=== PATIENT | female | born 2000 | race African-American/Black ===

== ENCOUNTER 2021-07-18 18:48 | Emergency (ER) | payer BC, MEDICAID, SELFPAY ==
[2021-07-18 18:59] VITALS: BP 137/92; PULSE 95; RESP 18; TEMP 37; O2SAT 100
[2021-07-18 19:00] VITALS: BP 137/92; PULSE 95; RESP 18; TEMP 37; O2SAT 100
--- NOTE | 2021-07-18 19:04 | ED.GENADULT ---
HPI - General Adult General Chief complaint: Asthma Stated complaint: ASTHMA Time Seen by Provider: 07/18/21 19:04 Source: patient Mode of arrival: ambulatory Limitations: no limitations History of Present Illness HPI narrative: 20 y/o female presented for c/o 'asthma attack' stating she has had difficulty taking in deep breaths for 2 days after cleaning bathroom with bleach. Endorses mild discomfort with deep breaths and occasional wheezing. Endorses symptoms are worse with exertion. PCP prescribed rescue inhaler yesterday, states she has been taking it every 4 hours without significant relief. Denies recent illness, cp, palpitations, n/v/d/f/c. Not vaccinated for covid. Denies sick contacts. No distress. Related Data Home Medications Medication Instructions Recorded Confirmed albuterol sulfate 90 mcg INHALATION PRN PRN 07/18/21 07/18/21 Allergies Allergy/AdvReac Type Severity Reaction Status Date / Time Penicillins Allergy Mild Unknown Verified 07/18/21 18:58 Review of Systems Review of Systems: CONSTITUTIONAL: Denies body aches, fever, chills, or sweats. EYES: Denies visual changes, redness, or discharge. ENT: Denies rhinorrhea, congestion, sore throat, or otalgia. CARDIOVASCULAR: Denies chest pain, palpitations, or edema. RESPIRATORY: reports cough and dyspnea. GASTROINTESTINAL: Denies abdominal pain, nausea, vomiting, or diarrhea. GENITOURINARY: Denies dysuria or hematuria. SKIN: Denies rash, itching, or wounds. MUSCULOSKELETAL: Denies back pain, joint pain, or myalgia. NEUROLOGIC: Denies headache, numbness, tingling, or weakness. PSYCH: Denies depression or anxiety. All systems reviewed & are unremarkable except as noted in HPI and below [facility] Comments At time of signature, I have reviewed and agree with nursing past medical, surgical, social and family history unless otherwise noted. Please see nursing chart for further information. There is no relevant family history pertinent to the presenting complaint Exam Narrative: GENERAL: Well-appearing in no acute distress. HEAD: Normocephalic, atraumatic. EYES: No redness or drainage. Conjunctivae normal. ENT: Mucous membranes pink and moist. No rhinorrhea. Throat normal. Uvula midline. NECK: Normal AROM. Supple. No lymphadenopathy. CHEST: No respiratory distress. Clear and diminished to auscultation. speaks in full sentences. HEART: Regular rate and rhythm. No murmur appreciated. Normal peripheral pulses. ABDOMEN: Soft, nontender, nondistended, normal active bowel sounds. MUSCULOSKELETAL: No bony tenderness. EXTREMITIES: Normal range of motion. No edema. SKIN: Warm, dry, no rash. Capillary refill normal. Normal skin turgor. NEURO: No focal deficits. Alert and oriented x3. Gait steady. PSYCH: Normal affect. No signs of depression or anxiety. Course Course Emergency Course: Patient is aware of diagnosis, understands and agrees to treatment plan. Anticipatory guidance given. Patient agrees to follow-up as directed and is aware of reasons to seek care at the emergency department. Portions of this record may have been created with voice recognition software Level of Care: Express Care Visit Vital Signs Vital signs: Vital Signs Temperature 98.6 F 07/18/21 18:59 Pulse Rate 95 07/18/21 18:59 Respiratory Rate 18 07/18/21 18:59 Blood Pressure 137/92 H 07/18/21 18:59 Pulse Oximetry 100 07/18/21 18:59 Temperature 98.6 F 07/18/21 19:00 Pulse Rate 95 07/18/21 19:00 Respiratory Rate 18 07/18/21 19:00 Blood Pressure 137/92 H 07/18/21 19:00 Pulse Oximetry 100 07/18/21 19:00 Medical Decision Making [facility] Narrative Medical decision making narrative: pt requesting breathing treatment since albuterol rescue inhaler is not improving symptoms. After treatment she had more appreciable scattered faint wheezing. No distress. Rx steroid. She will f/u with pcp for further recommendations or go to ER for worsening symptoms. Different
[2021-07-18] MEDS: ALBUTEROL SULFATE NEB 2.5 MG/3 ML INH 1.25 MG INHALATION (19:13)
== END 2021-07-18 19:35 | disposition home or self-care (01) ==
PROVIDERS: Emergency Provider Nurse Practitioner Family; PCP Pediatrics Adolescent Medicine
DX: R06.00 Dyspnea, unspecified (principal); J45.909 Unspecified asthma, uncomplicated
CPT/HCPCS: 94640; 99203; G0463